=== PATIENT | female | born 1955 | race African-American/Black ===

== ENCOUNTER 2017-06-23 11:59 | Emergency (ER) | payer SELFPAY ==
[~2017-06-23] VITALS: Ht 162.6 cm; Wt 80.0 kg
[2017-06-23 12:13] VITALS: BP 90/40
== END 2017-06-23 17:52 | disposition left against medical advice (07) ==
LOC: ER 13:07
DX: Z53.21 Procedure and treatment not carried out due to patient leaving prior to being seen by health care provider (principal)